=== PATIENT | female | born 1945 | race Caucasian/White ===

== ENCOUNTER → 2016-11-15 | Outpatient (CLI) | payer MEDICARE ==
--- NOTE | 2016-11-15 10:48 | BD ---
EXAMINATION TYPE: MG DEXA axial skeleton. DATE OF EXAM: 11/15/2016 10:20 AM COMPARISON: NONE CLINICAL HISTORY: Z78.0 ASYMPTOMATIC MENOPAUSE Height: 63 Weight: 174 FRAX RISK QUESTIONS: Alcohol (3 or more units per day): NO Family History (Parent hip fracture): NO Glucocorticoids (More than 3mos): NO (Ex: prednisone, prednisolone, methylprednisolone, dexamethasone, and hydrocortisone). History of Fracture in Adulthood: YES Secondary Osteoporosis: 1. Type 1 Diabetes: NO 2. Hyperthyroidism: NO 3. Menopause before 45: NO 4. Malnutrition: NO 5. Chronic liver disease: NO Rheumatoid Arthritis: NO Current Tobacco Use: YES RISK FACTORS HISTORY OF: Other Fractures since Age 52: YES, RT FOOT When: >52 YRS OLD Family History of Osteoporosis: NO Smoke tobacco: YES, A PAC DAILY Drink Alcohol: NO Active: SOMEWHAT, MORE IN SUMMER Diet low in dairy products/other sources of calcium: NO Postmenopausal woman: YES AT AGE 52 Lost more than 2 inches in height since high school: NO Adrenal Insufficiency: NO MEDICATIONS: Thyroid Medications: IN THE PAST ONLY, RT SIDE OF THYROID REMOVED Which medication: SYNTHROID How Long: STOPPED TAKING MEDS 5 YRS AGO Additional Medications: ON BP MEDS IN PAST, BUT NOT NOW, NOTHING TO NOTE Additional History: NONE TO NOTE EXAM MEASUREMENTS: Bone mineral densitometry was performed using the [employer] System. Bone mineral density as measured about the Lumbar spine is: ----- L1-L4(G/cm2): 1.069 T Score Values are as follows: ----- L1: -1.6 ----- L2: -2.0 ----- L3: -0.5 ----- L4: 0.0 ----- L1-L4: -0.9 Bone mineral density IS THE PATIENTS FIRST BONE DENSITY SCAN, BASELINE Bone mineral density about the R hip (g/cm2): 0.764 Bone mineral density about the L hip (g/cm2): 0.782 T Score values are as follows: -----R Neck: -2.0 -----L Neck: -1.8 -----R Intertrochanter: -1.6 -----L Intertrochanter: -1.3 Bone mineral density BASELINE STUDY FOR BONE DENSITY FRAX%'S: FOR MAJOR OSTEOPOROTIC FX: 18.6%.....FOR HIP FX: 5.4% PROBABILITY OF FX IN 10 YR S TIME IMPRESSION: Osteopenia (T Score between -2.5 and -1 as noted by T score values There is slightly increased risk of fracture and the patient may be considered for treatment. Re-Screen 1-2 years. FOR BOTH STUDIES, SPINE AND BOTH HIPS NOTE: T-SCORE=SD OF THE YOUNG ADULT MEAN.
--- NOTE | 2016-11-18 09:02 | MM ---
Reason for exam: screening (asymptomatic). Physical Findings: A clinical breast exam by your physician is recommended on an annual basis and results should be correlated with mammographic findings. MG 3D Screening Mammo W/Cad Bilateral CC and MLO view(s) were taken. No prior studies available for comparison. There are scattered fibroglandular densities. No suspicious calcifications are seen. Right retroareolar nodule. ASSESSMENT: Incomplete: need additional imaging evaluation, BI-RAD 0 RECOMMENDATION: Special view mammogram of the right breast. If lesion persists on supplemental views, image directed ultrasound is recommended. [facility] will attempt to contact patient to return for supplemental views and ultrasound if indicated.
== END | disposition home or self-care (01) ==
LOC: RADMAMWWP 09:31
PROVIDERS: ATTEND Family Medicine
DX: Z12.31 Encounter for screening mammogram for malignant neoplasm of breast (principal); R92.2 Inconclusive mammogram; M85.80 Other specified disorders of bone density and structure, unspecified site; Z78.0 Asymptomatic menopausal state
CPT/HCPCS: 77080; 77052; 77063; G0202

== ENCOUNTER → 2016-11-29 | Outpatient (CLI) | payer MEDICARE, OTHER ==
--- NOTE | 2016-11-29 11:00 | MM ---
Reason for exam: additional evaluation requested from abnormal screening. Last mammogram was performed less than 1 month ago. History: Patient is postmenopausal. Family history of breast cancer in paternal aunt. Physical Findings: Nurse did not find any significant physical abnormalities on exam. MG 3D Work Up W/Cad RT ML, spot compression CC, and spot compression MLO view(s) were taken of the right breast. Prior study comparison: November 15, 2016, bilateral MG 3d screening mammo w/cad. There is no discrete abnormality including area of concern. These results were verbally communicated with the patient and result sheet given to the patient on 11/29/16. ASSESSMENT: Probably benign, BI-RAD 3 RECOMMENDATION: Follow-up diagnostic mammogram of the right breast in 6 months.
== END | disposition home or self-care (01) ==
LOC: RADMAMWWP 10:15
PROVIDERS: ATTEND Family Medicine
DX: R92.8 Other abnormal and inconclusive findings on diagnostic imaging of breast (principal)
CPT/HCPCS: G0206; G0279

== ENCOUNTER → 2018-10-23 | Outpatient (CLI) | payer MEDICARE, OTHER ==
--- NOTE | 2018-10-26 11:36 | MM ---
Reason for exam: screening (asymptomatic). Last mammogram was performed 1 year and 11 months ago. History: Patient is postmenopausal. Family history of breast cancer in paternal aunt. Physical Findings: A clinical breast exam by your physician is recommended on an annual basis and results should be correlated with mammographic findings. MG 3D Screening Mammo W/Cad Bilateral CC and MLO view(s) were taken. Prior study comparison: November 29, 2016, right breast MG 3d work up w/cad RT. November 15, 2016, bilateral MG 3d screening mammo w/cad. There are scattered fibroglandular densities. There are benign appearing vascular calcifications bilaterally. There is chronic nodularity in the right axilla. There is no dominant lesion. There is no discrete abnormality. Benign bilateral axillary lymph nodes. ASSESSMENT: Benign, BI-RAD 2 RECOMMENDATION: Routine screening mammogram of both breasts in 1 year.
== END | disposition home or self-care (01) ==
LOC: RADMAMWWP 13:44
PROVIDERS: ATTEND Family Medicine
DX: Z12.31 Encounter for screening mammogram for malignant neoplasm of breast (principal)
CPT/HCPCS: 77063; 77067

== ENCOUNTER 2020-08-07 10:41 | Observation (INO) | payer MEDICARE, OTHER ==
[2020-08-07] MEDS ORDERED: ASPIRIN 81 MG PO STA (11:13)
[2020-08-07 11:47] LABS: Basophils % (A) 1 %; Eosinophils # (A) 0.1 k/uL (0-0.7); Eosinophils % (A) 1 %; HCT 44.9 % (34.0-46.0); HGB 14.3 gm/dL (11.4-16.0); Lymphocytes # (A) 2.2 k/uL (1.0-4.8); Lymphocytes % (A) 31 %; MCH 30.7 pg (25.0-35.0); MCHC 31.9 g/dL (31.0-37.0); MCV 96.3 fL (80.0-100.0); Mean Platelet Volume 9.1; Monocytes # (A) 0.6 k/uL (0-1.0); Monocytes % (A) 8 %; Neutrophils % (A) 56 %; Platelet Count 247 k/uL (150-450); RBC 4.66 m/uL (3.80-5.40); RDW 13.2 % (11.5-15.5); WBC 7.1 k/uL (3.8-10.6)
[2020-08-07 11:54] LABS: ALT 21 U/L (4-34); AST 28 U/L (14-36); African American GFR (CKD) >90 (>60 ml/min/1.73 sqM); Albumin 4.1 g/dL (3.5-5.0); Alkaline Phosphatase 85 U/L (38-126); Anion Gap 6 mmol/L; Blood Urea Nitrogen 12 mg/dL (7-17); Calcium 9.4 mg/dL (8.4-10.2); Carbon Dioxide 25 mmol/L (22-30); Chloride 106 mmol/L (98-107); Glucose 116 mg/dL (74-99); Magnesium 1.8 mg/dL (1.6-2.3); Non-African American GFR(CKD) >90 (>60 ml/min/1.73 sqM); Potassium 4.1 mmol/L (3.5-5.1); Sodium 137 mmol/L (137-145); Total Bilirubin 0.6 mg/dL (0.2-1.3); Total Protein 6.9 g/dL (6.3-8.2)
[2020-08-07 12:00] LABS: INR 0.9 (<1.2); Partial Thromboplastin Time 24.3 sec (22.0-30.0); Prothrombin Time 9.9 sec (9.0-12.0)
--- NOTE | 2020-08-07 12:33 | XR ---
EXAMINATION TYPE: XR chest 2V DATE OF EXAM: 08/07/2020 COMPARISON: 05/19/2014 INDICATION: Chest pain TECHNIQUE: Frontal and lateral views of the chest are obtained. FINDINGS: The heart size is normal. The pulmonary vasculature is normal. The lungs are clear. Previous pleural effusion IMPRESSION: 1. No acute pulmonary process.
--- NOTE | 2020-08-07 12:38 | ED ---
Chest Pain HPI - General Chief Complaint: Chest Pain Stated Complaint: chest pain Time Seen by Provider: 08/07/20 11:10 Source: patient, RN notes reviewed Mode of arrival: ambulatory Limitations: no limitations - History of Present Illness Initial Comments: This a 75-year-old female sent emergency Department chief complaint of chest pressure this morning. Patient states that This morning states that she was taking her vitamins and drink water. Patient states she started not feeling well developed some pressure in her chest that radiated across denies any back pain. She no associated shortness of breath. Patient states that symptoms did resolve and she had no direct pain states it was all pressure. Patient does have known carotid artery blockage, lower extremity issues. Patient does take medication for hyperlipidemia did have a past history of hypertension. Patient denies any prior cardiac disease so she's never had a heart cath and no recent stress test. Patient denies any fevers or chills no patient offers no other complaints. - Related Data Home Medications Medication Instructions Recorded Confirmed No Known Home Medications 08/11/14 08/11/14 Allergies Allergy/AdvReac Type Severity Reaction Status Date / Time No Known Allergies Allergy Verified 08/07/20 11:08 Review of Systems ROS Statement: Those systems with pertinent positive or pertinent negative responses have been documented in the HPI. ROS Other: All systems not noted in ROS Statement are negative. EKG Findings - EKG Comments: EKG Findings:: EKG performed at 11:28 sinus bradycardia rate of 56 ME 198 QRS 78 QT/QTC 426/411 Past Medical History Past Medical History: Thyroid Disorder Additional Past Medical History / Comment(s): Thyroid disorder History of Any Multi-Drug Resistant Organisms: None Reported Past Surgical History: Bowel Resection, Cholecystectomy, Tubal Ligation Past Anesthesia/Blood Transfusion Reactions: Previous Problems w/ Anesthesia Additional Past Anesthesia/Blood Transfusion Reaction / Comment(s): pt states had breathing difficulties after bowel resection surgery attributed to anesthesia Past Psychological History: No Psychological Hx Reported Smoking Status: Current some day smoker Past Alcohol Use History: None Reported Past Drug Use History: None Reported General Exam Limitations: no limitations General appearance: alert, in no apparent distress Head exam: Present: atraumatic, normocephalic, normal inspection Eye exam: Present: normal appearance, PERRL, EOMI. Absent: scleral icterus, conjunctival injection, periorbital swelling ENT exam: Present: normal exam, mucous membranes moist Neck exam: Present: normal inspection. Absent: tenderness, meningismus, lymphadenopathy Respiratory exam: Present: normal lung sounds bilaterally. Absent: respiratory distress, wheezes, rales, rhonchi, stridor, chest wall tenderness Cardiovascular Exam: Present: regular rate, normal rhythm, normal heart sounds. Absent: systolic murmur, diastolic murmur, rubs, gallop, clicks GI/Abdominal exam: Present: soft, normal bowel sounds. Absent: distended, tenderness, guarding, rebound, rigid Course Vital Signs 08/07/20 08/07/20 08/07/20 11:05 11:30 11:40 Temperature 97.7 F Pulse Rate 73 61 65 Respiratory 18 18 18 Rate Blood Pressure 142/76 155/84 155/84 O2 Sat by Pulse 96 98 96 Oximetry 08/07/20 12:28 Temperature Pulse Rate 54 L Respiratory 18 Rate Blood Pressure 159/79 O2 Sat by Pulse 97 Oximetry Chest Pain MDM - MDM 75-year-old presented for chest pressure. Patient's workup is negative this time she does have some mild EKG changes. Patient be admitted for cardiac observation, cardiology evaluation. Disposition Clinical Impression: Chest pain Disposition: ADMITTED IP TO THIS HOSP Condition: Fair Referrals: Kwame Colon MD [Primary Care Provider] - 1-2 days
[2020-08-07] MEDS ORDERED: HEPARIN SODIUM,PORCINE 5,000 UNIT/ML 1 ML VIAL IV PRN (12:51)
[2020-08-07] MEDS ORDERED: HEPARIN SODIUM,PORCINE 5,000 UNIT/ML 1 ML VIAL IV ONE (12:51)
[2020-08-07] MEDS ORDERED: NITROGLYCERIN SL TABS 0.4 MG TAB SUBLINGUAL PRN (12:51)
[2020-08-07] MEDS ORDERED: HEPARIN SOD,PORK IN 0.45% NACL 25,000 UNIT in 0.45% NACL 1 250ML.BAG IV SCH (13:00)
--- NOTE | 2020-08-07 16:37 | P.HPIM ---
History of Present Illness 75-year-old female came in because of chest pressure like sensation of chest discomfort which started today morning and patient attributes to her symptoms to call probably eating spicy food last night. Patient denied any fever chills cough. Patient has significant T-wave inversions in the lateral leads. Patient pain is not associated with shortness of breath lightheadedness diaphoresis. Patient does have history of carotid vascular disease, peripheral vascular disease used to smoke until about any ago. Patient had a stress test about any ago which did not show any inducible ischemia compared to her previous EKG receiving inversions appear to be new. Patient is being admitted for additional family and for possibility of unstable angina. Review of Systems REVIEW OF SYSTEMS: CONSTITUTIONAL: No fever, no malaise, no fatigue. HEENT: No recent visual problems or hearing problems. Denied any sore throat. CARDIOVASCULAR: No orthopnea, PND, no palpitations, no syncope. PULMONARY: No shortness of breath, no cough, no hemoptysis. GASTROINTESTINAL: No diarrhea, no nausea, no vomiting, no abdominal pain. NEUROLOGICAL: No headaches, no weakness, no numbness. HEMATOLOGICAL: Denies any bleeding or petechiae. GENITOURINARY: Denies any burning micturition, frequency, or urgency. MUSCULOSKELETAL/RHEUMATOLOGICAL: Denies any joint pain, swelling, or any muscle pain. ENDOCRINE: Denies any polyuria or polydipsia. The rest of the 14-point review of systems is negative. Past Medical History Past Medical History: Thyroid Disorder Additional Past Medical History / Comment(s): Thyroid disorder History of Any Multi-Drug Resistant Organisms: None Reported Past Surgical History: Bowel Resection, Cholecystectomy, Tubal Ligation Past Anesthesia/Blood Transfusion Reactions: Previous Problems w/ Anesthesia Additional Past Anesthesia/Blood Transfusion Reaction / Comment(s): pt states had breathing difficulties after bowel resection surgery attributed to anesthesia Past Psychological History: No Psychological Hx Reported Smoking Status: Current some day smoker Past Alcohol Use History: None Reported Past Drug Use History: None Reported Medications and Allergies Home Medications Medication Instructions Recorded Confirmed Type ALPRAZolam [Xanax] 0.25 mg PO BID PRN 08/07/20 08/07/20 History Aspirin EC [Ecotrin Low Dose] 81 mg PO DAILY 08/07/20 08/07/20 History Atorvastatin [Lipitor] 40 mg PO HS 08/07/20 08/07/20 History Calcium Carbonate [Calcium] 600 mg PO DAILY 08/07/20 08/07/20 History Cholecalciferol [Vitamin D3 (25 1,000 unit PO DAILY 08/07/20 08/07/20 History Mcg = 1000 Iu)] buPROPion XL [Wellbutrin Xl] 150 mg PO PC-SUPPER 08/07/20 08/07/20 History Allergies Allergy/AdvReac Type Severity Reaction Status Date / Time No Known Allergies Allergy Verified 08/07/20 13:50 Physical Exam Vitals: Vital Signs Temp Pulse Pulse Resp BP BP Pulse Ox 08/07/20 16:20 97.6 F 55 L 16 153/72 95 08/07/20 15:10 98.1 F 69 16 156/74 96 08/07/20 14:00 58 L 18 145/71 96 08/07/20 13:20 59 L 18 155/77 99 08/07/20 12:28 54 L 18 159/79 97 08/07/20 11:40 65 18 155/84 96 08/07/20 11:30 61 18 155/84 98 08/07/20 11:05 97.7 F 73 18 142/76 96 Intake and Output 08/07/20 08/07/20 08/07/20 06:59 14:59 22:59 Other: Weight 75.75 kg PHYSICAL EXAMINATION: GENERAL: The patient is alert and oriented x3, not in any acute distress. Well developed, well nourished. HEENT: Pupils are round and equally reacting to light. EOMI. No scleral icterus. No conjunctival pallor. Normocephalic, atraumatic. No pharyngeal erythema. No thyromegaly. CARDIOVASCULAR: S1 and S2 present. No murmurs, rubs, or gallops. PULMONARY: Chest is clear to auscultation, no wheezing or crackles. ABDOMEN: Soft, nontender, nondistended, normoactive bowel sounds. No palpable organomegaly. MUSCULOSKELETAL: No joint swelling or deformity. EXTREMITIES: No cyanosis, clubbing, or pedal edema. NEUROLOGICAL: Gross neurological examination did not reveal any focal deficits. SKIN: No rashes. Results CBC & Chem 7: 08/07/20 11:29 08/07/20 11:29 Labs: Abnormal Lab Results - Last 24 Hours (Table) 08/07/20 Range/Units 11:29 Creatinine 0.51 L (0.52-1.04) mg/dL Glucose 116 H (74-99) mg/dL Assessment and Plan Plan: 1 chest pain: We'll rule out acute coronary syndrome/unstable angina. We will evaluate the patient decision regarding cardiac catheterization as per the patient and cardiology. -Hyperthyroidism next and-hyperlipidemia -Professor disease -Carotid vascular disease Patient will be continued on aspirin and statin.
--- NOTE | 2020-08-07 18:00 | ECHOF ---
Referral Reason:chest pain MEASUREMENTS -------- HEIGHT: 160.0 cm WEIGHT: 75.7 kg BP: RVIDd: 2.8 cm (< 3.3) IVSd: 1.3 cm (0.6 - 1.1) LVIDd: 3.5 cm (3.9 - 5.3) LVPWd: 1.2 cm (0.6 - 1.1) IVSs: 1.6 cm LVIDs: 3.1 cm LVPWs: 1.8 cm LA Diam: 3.2 cm (2.7 - 3.8) LAESV Index (A-L): 23.87 ml/m Ao Diam: 3.4 cm (2.0 - 3.7) AV Cusp: 1.7 cm (1.5 - 2.6) MV EXCURSION: 15.568 mm (> 18.000) MV EF SLOPE: 67 mm/s (70 - 150) EPSS: 0.6 cm MV E Kristofer: 0.77 m/s MV DecT: 362 ms MV A Kristofer: 1.04 m/s MV E/A Ratio: 0.74 FINDINGS -------- Sinus rhythm. This was a technically adequate study. The left ventricular size is normal. There is mild concentric left ventricular hypertrophy. Overa ll left ventricular systolic function is normal with, an EF between 60 - 65 %. The right ventricle is normal in size. Normal LA size by volume 22+/-6 ml/m2. The right atrium is normal in size. Lipomatous Hypertrophy of the atrial septum is present The aortic valve is trileaflet and appears structurally normal. Mild mitral annular calcification present. There is trace mitral regurgitation. The tricuspid valve appears structurally normal. The pulmonic valve was not well visualized. The aortic root size is normal. Normal inferior vena cava with normal inspiratory collapse consistent with estimated right atrial pre ssure of 5 mmHg. There is no pericardial effusion. CONCLUSIONS -------- 1. The left ventricular size is normal. 2. There is mild concentric left ventricular hypertrophy. 3. Overall left ventricular systolic function is normal with, an EF between 60 - 65 %. 4. Lipomatous Hypertrophy of the atrial septum is present 5. Mild mitral annular calcification present. 6. There is trace mitral regurgitation. 7. There is no pericardial effusion. [employer]: KELSEY Davalos
[2020-08-07] MEDS ORDERED: ATORVASTATIN 40 MG TAB PO SCH (21:00)
[2020-08-08] MEDS ORDERED: SODIUM CHLORIDE 0.9% 1,000 ML in EMPTY BAG 1 BAG IV ONE (08:24)
[2020-08-08] MEDS ORDERED: ALPRAZolam 0.25 MG TAB PO PRN (08:24)
[2020-08-08] MEDS ORDERED: ALPRAZolam 0.5 MG TAB PO PRN (08:24)
[2020-08-08] MEDS ORDERED: ASPIRIN 325 MG TAB PO SCH (09:00)
[2020-08-08 10:14] LABS: Mean Platelet Volume 9.5; Platelet Count 242 k/uL (150-450)
[2020-08-08 10:26] LABS: Cholesterol 118 mg/dL (<200); HDL Cholesterol 79 mg/dL (40-60); LDL Cholesterol,Calculated 22 mg/dL (0-99); Triglycerides 87 mg/dL (<150)
--- NOTE | 2020-08-08 10:38 | P.CRDCN ---
History of Present Illness History of present illness: HISTORY OF PRESENTING ILLNESS This is a pleasant 75-year-old female past medical history significant for dyslipidemia, peripheral vascular disease with known right carotid artery b lockage followed by Dr. Chang, abnormal lower extremity GRAY's and chronic nicotine dependence. She follows in the office with Dr. Cleaning. We have been asked to see in consultation for chest pain. She states she woke up yesterday morning feeling in her usual state of health. She got up to take her vitamins and she noticed a pressure in the left side of her chest that radiated through to her back. She denies radiation down the arm, into the neck or jaw. The chest discomfort lasted for approximately 15 minutes with no specific alleviating factor. She went on with her day without any further chest discomfort. Later in the day she was speaking with her son and told him what happened morning and he brought her to the hospital for further evaluation. She has had no further symptoms of chest discomfort since arriving at the hospital. DIAGNOSTICS EKG reveals sinus bradycardia heart rate of 56 T-wave inversions noted in anterior precordial leads as well as high lateral. Chest xray negative for acute cardiopulmonary process. Laboratory reviewed, CBC unremarkable, cardiac enzymes negative 3, LDL 22 and HDL 79, sodium 137, potassium 4.1, creatinine 0.51, magnesium 1.8 and NTP proBNP 337. Current cardiac medications include aspirin 81 mg daily and atorvastatin 40 mg at bedtime. She underwent a Lexiscan stress test in the office November 2018 that was negative for reversible cardiac ischemia. At that time her EKG was normal sinus mechanism with no ST or T wave abnormalities noted. Most recent echocardiogram obtained in the office December 2018 revealed preserved LV systolic function with ejection fraction 65%, mild concentric LVH noted. REVIEW OF SYSTEMS At the time of my exam: CONSTITUTIONAL: Denies fever or chills. CARDIOVASCULAR: Denies chest pain, shortness of breath, orthopnea, PND or palpitations. RESPIRATORY: Denies cough. GASTROINTESTINAL: Denies abdominal pain, diarrhea, constipation, nausea or vomiting. MUSCULOSKELETAL: Denies myalgias. NEUROLOGIC: Denies numbness, tingling or weakness. ENDOCRINE: Denies fatigue, weight change, polydipsia or polyurina. GENITOURINARY: Denies burning, hematuria or urgency with micturation. HEMATOLOGIC: Denies history of anemia or bleeding. PHYSICAL EXAMINATION Blood pressure 136/70 heart rate 56 afebrile and maintaining oxygen saturation on room air. CONSTITUTIONAL: No apparent distress. HEENT: Head is normocephalic. Pupils are equal, round. Sclerae anicteric. Mucous membranes of the mouth are moist. No JVD. No carotid bruit. CHEST EXAMINATION: Lungs are clear to auscultation. No chest wall tenderness is noted on palpation or with deep breathing. HEART EXAMINATION: Regular rate and rhythm. S1, S2 heard. No murmurs, gallops or rub. ABDOMEN: Soft, nontender. Positive bowel sounds. EXTREMITIES: 2+ peripheral pulses, no lower extremity edema and no calf tenderness. NEUROLOGIC EXAMINATION: Patient is awake, alert and oriented x3. ASSESSMENT Unstable angina with abnormal EKG Dyslipidemia Peripheral vascular disease Chronic nicotine dependence PLAN An acute coronary event has been ruled out. Given the patient's abnormal EKG and symptoms of chest discomfort we recommend proceeding with cardiac catheterization to assess for underlying coronary artery disease. I have discussed the risks, benefits and alternative therapies for the above-mentioned procedure and for both sedation/analgesia as well as necessary blood product administration, if indicated, as they pertain to this patient. The patient has indicated understanding and acceptance of the risks and procedures discussed. Questions have been answered appropriately and she is agreeable to move forward with the above stated procedure. Recommend smoking cessation. Obtain 2-D echocardiogram and Doppler study to assess cardiac structure and function. Further recommendations to follow based upon clinical course. Thank you kindly for this consultation. Nurse Practitioner note has been reviewed, I agree with a documented findings and plan of care. Patient was seen and examined. Past Medical History Past Medical History: Chest Pain / Angina, Hyperlipidemia, Thyroid Disorder Additional Past Medical History / Comment(s): Thyroid disorder History of Any Multi-Drug Resistant Organisms: None Reported Past Surgical History: Bowel Resection, Cholecystectomy, Tubal Ligation Past Anesthesia/Blood Transfusion Reactions: Previous Problems w/ Anesthesia Additional Past Anesthesia/Blood Transfusion Reaction / Comment(s): pt states had breathing difficulties after bowel resection surgery attributed to anesthesia Past Psychological History: No Psychological Hx Reported Smoking Status: Current some day smoker Past Alcohol Use History: None Reported Past Drug Use History: None Reported - Past Family History Mother Family Medical History: Myocardial Infarction ([place]) Father Family Medical History: Cancer Additional Family Medical History / Comment(s): Prostate cancer Medications and Allergies Home Medications Medication Instructions Recorded Confirmed Type ALPRAZolam [Xanax] 0.25 mg PO BID PRN 08/07/20 08/07/20 History Aspirin EC [Ecotrin Low Dose] 81 mg PO DAILY 08/07/20 08/07/20 History Atorvastatin [Lipitor] 40 mg PO HS 08/07/20 08/07/20 History Calcium Carbonate [Calcium] 600 mg PO DAILY 08/07/20 08/07/20 History Cholecalciferol [Vitamin D3 (25 1,000 unit PO DAILY 08/07/20 08/07/20 History Mcg = 1000 Iu)] buPROPion XL [Wellbutrin Xl] 150 mg PO PC-SUPPER 08/07/20 08/07/20 History Allergies Allergy/AdvReac Type Severity Reaction Status Date / Time No Known Allergies Allergy Verified 08/07/20 13:50 Physical Exam Vitals: Vital Signs Temp Pulse Pulse Resp BP BP Pulse Ox 08/08/20 09:00 16 08/08/20 07:54 97.8 F 56 L 16 136/70 95 08/08/20 03:00 97.8 F 68 16 128/58 96 08/07/20 20:23 97.7 F 72 20 143/72 97 08/07/20 16:20 97.6 F 55 L 16 153/72 95 08/07/20 15:15 16 08/07/20 15:10 98.1 F 69 16 156/74 96 08/07/20 14:00 58 L 18 145/71 96 08/07/20 13:20 59 L 18 155/77 99 08/07/20 12:28 54 L 18 159/79 97 08/07/20 11:40 65 18 155/84 96 08/07/20 11:30 61 18 155/84 98 08/07/20 11:05 97.7 F 73 18 142/76 96 Intake and Output 08/07/20 08/08/20 08/08/20 22:59 06:59 14:59 Intake Total 548.932 51.135 Balance 548.932 51.135 Intake: Intake, IV Titration 68.932 51.135 Amount Heparin Sod,Pork in 0.45% 68.932 51.135 NaCl 25,000 unit In 0.45 % NaCl 1 250ml.bag @ 12 UNITS/KG/HR 9.09 mls/hr IV .Q24H JOJO Rx#: [id number] Oral 480 Other: Voiding Method Toilet Toilet Toilet # Voids 2 1 1 Weight 75.75 kg Results 08/08/20 09:12 08/07/20 11:29 Cardiac Enzymes 08/07/20 08/07/20 08/07/20 Range/Units 11: 11: 14:47 AST 28 (14-36) U/L Troponin I <0.012 <0.012 (0.000-0.034) ng/mL 08/07/20 Range/Units 17:25 AST (14-36) U/L Troponin I <0.012 (0.000-0.034) ng/mL Coagulation 08/07/20 08/07/20 08/08/20 Range/Units 11: 18:30 01:30 PT 9.9 (9.0-12.0) sec APTT 24.3 117.4 H* 47.7 H (22.0-30.0) sec CBC 08/07/20 08/08/20 Range/Units 11:29 09:12 WBC 7.1 (3.8-10.6) k/uL RBC 4.66 (3.80-5.40) m/uL Hgb 14.3 (11.4-16.0) gm/dL Hct 44.9 (34.0-46.0) % Plt Count 247 242 (150-450) k/uL Comprehensive Metabolic Panel 08/07/20 Range/Units 11:29 Sodium 137 (137-145) mmol/L Potassium 4.1 (3.5-5.1) mmol/L Chloride 106 (98-107) mmol/L Carbon Dioxide 25 (22-30) mmol/L BUN 12 (7-17) mg/dL Creatinine 0.51 L (0.52-1.04) mg/dL Glucose 116 H (74-99) mg/dL Calcium 9.4 (8.4-10.2) mg/dL AST 28 (14-36) U/L ALT 21 (4-34) U/L Alkaline Phosphatase 85 (38-126) U/L Total Protein 6.9 (6.3-8.2) g/dL Albumin 4.1 (3.5-5.0) g/dL Current Medications Generic Name Dose Route Start Last Admin Trade Name Freq PRN Reason Stop Dose Admin Alprazolam 0.25 mg 08/08/20 08:24 08/08/20 09:20 Alprazolam 0.25 Mg Tab PO 0.25 mg Q6HR PRN Administration Mild Anxiety Alprazolam 0.5 mg 08/08/20 08:24 Alprazolam 0.5 Mg Tab PO Q6HR PRN Moderate Anxiety Aspirin 325 mg 08/08/20 09:00 08/08/20 08:52 Aspirin 325 Mg Tab PO 325 mg DAILY JOJO Administration Atorvastatin Calcium 40 mg 08/07/20 21:00 08/07/20 20:06 Atorvastatin 40 Mg Tab PO 40 mg HS JOJO Administration Heparin Sodium (Porcine) 0 unit 08/07/20 12:51 Heparin Sodium,Porcine 5,000 Unit/Ml 1 Ml Vial IV Q6HR PRN Low PTT Protocol Heparin Sodium/Sodium Chloride 250 mls @ 9.09 mls/hr 08/07/20 13:00 08/08/20 04:17 25,000 unit/ Sodium Chloride IV 9 units/kg/hr .Q24H JOJO 6.818 mls/hr Titration Protocol 12 UNITS/KG/HR Sodium Chloride 1,000 ml/ IV 1,000 mls @ 75.75 mls/hr 08/08/20 08:24 08/08/20 08:44 Solution IV 08/08/20 21:36 75.75 mls/hr .[id number] ONE Administration 1 ML/KG/HR Nitroglycerin 0.4 mg 08/07/20 12:51 Nitroglycerin Sl Tabs 0.4 Mg Tab SUBLINGUAL Q5M PRN Chest Pain Intake and Output 08/07/20 08/08/20 08/08/20 22:59 06:59 14:59 Intake Total 548.932 51.135 Balance 548.932 51.135 Intake: Intake, IV Titration 68.932 51.135 Amount Heparin Sod,Pork in 0.45% 68.932 51.135 NaCl 25,000 unit In 0.45 % NaCl 1 250ml.bag @ 12 UNITS/KG/HR 9.09 mls/hr IV .Q24H JOJO Rx#: [id number] Oral 480 Other: Voiding Method Toilet Toilet Toilet # Voids 2 1 1 Weight 75.75 kg 08/08/20 09:12 08/07/20 11:29
[2020-08-08] MEDS ORDERED: IV FLUID CONTINUATION 950 ML IV ONE (10:53)
[2020-08-08] MEDS: MIDAZOLAM 2 MG/2 ML VIAL IV ONE ×2 (11:10→11:15)
[2020-08-08] MEDS ORDERED: LIDOCAINE 1% INJ 10MG/ML (20 ML MDV) SQ ONE (11:14)
[2020-08-08] MEDS ORDERED: IOPAMIDOL-370 125ML BTL INJ ONE (11:22)
[2020-08-08] MEDS ORDERED: RX INFO: IV CONTRAST WAS GIVEN 1 EACH MISC MISCELLANE PRN (11:33)
--- NOTE | 2020-08-08 12:59 | P.DS ---
Providers Date of admission: 08/07/20 12:51 Attending physician: Destiny Jasso Consults: 08/07/20 12:51 Consult Physician Urgent Consulting Provider: Gil Gillilnad Consult Reason/Comments: chest pain Do you want consulting provider notified?: Yes Primary care physician: [facility] Course: 75-year-old the female came in for chest pain, ruled out acute coronary syndromes, patient did undergo cardiac catheterization which showed some mild atherosclerotic occlusive disease but note occlusion that will need intervention at this time patient will be discharged today after bedrest that is necessary post cardiac catheterization. PHYSICAL EXAMINATION: GENERAL: The patient is alert and oriented x3, not in any acute distress. Well developed, well nourished. HEENT: Pupils are round and equally reacting to light. EOMI. No scleral icterus. No conjunctival pallor. Normocephalic, atraumatic. No pharyngeal erythema. No thyromegaly. CARDIOVASCULAR: S1 and S2 present. No murmurs, rubs, or gallops. PULMONARY: Chest is clear to auscultation, no wheezing or crackles. ABDOMEN: Soft, nontender, nondistended, normoactive bowel sounds. No palpable organomegaly. MUSCULOSKELETAL: No joint swelling or deformity. EXTREMITIES: No cyanosis, clubbing, or pedal edema. NEUROLOGICAL: Gross neurological examination did not reveal any focal deficits. SKIN: No rashes. Please refer to my HPI. Other medical problems in the rest of the hospitalization course Patient Condition at Discharge: Fair Plan - Discharge Summary New Discharge Prescriptions: Continue Cholecalciferol [Vitamin D3 (25 Mcg = 1000 Iu)] 1,000 unit PO DAILY Calcium Carbonate [Calcium] 600 mg PO DAILY Atorvastatin [Lipitor] 40 mg PO HS Aspirin EC [Ecotrin Low Dose] 81 mg PO DAILY buPROPion XL [Wellbutrin XL] 150 mg PO PC-SUPPER ALPRAZolam [Xanax] 0.25 mg PO BID PRN PRN Reason: Anxiety Discharge Medication List ALPRAZolam [Xanax] 0.25 mg PO BID PRN 08/07/20 [History] Aspirin EC [Ecotrin Low Dose] 81 mg PO DAILY 08/07/20 [History] Atorvastatin [Lipitor] 40 mg PO HS 08/07/20 [History] Calcium Carbonate [Calcium] 600 mg PO DAILY 09/28/20 [History] Cholecalciferol [Vitamin D3 (25 Mcg = 1000 Iu)] 1,000 unit PO DAILY 08/07/20 [History] buPROPion XL [Wellbutrin XL] 150 mg PO PC-SUPPER 08/07/20 [History] Follow up Appointment(s)/Referral(s): Cedrick Cleaning MD [STAFF PHYSICIAN] - 1 Week Kwame Colon MD [Primary Care Provider] - 3 Days Patient Instructions/Handouts: How to Stop Smoking (DC), Heart Healthy Diet (DC) Discharge Disposition: HOME SELF-CARE
[2020-08-08 15:32] VITALS: RESP 16; TEMP 97.7
--- NOTE | 2020-08-08 16:38 | CC ---
CARDIAC CATHETERIZATION REPORT INDICATION: Unstable angina. PROCEDURE NOTE: After obtaining informed consent, left heart catheterization and coronary angiogram were performed via the right femoral artery using standard Stephan catheters. Patient tolerated the procedure well without any immediate complication. A femoral angiogram was performed and patient was made for manual hemostasis because of evidence of peripheral arterial disease. FINDINGS: 1. HEMODYNAMICS: Left ventricular end-diastolic pressure is 12 mm. There is no gradient across the aortic valve. 2. LEFT VENTRICULOGRAM: Left ventriculogram is not performed. 3. ANGIOGRAPHIC DATA: LEFT MAIN CORONARY ARTERY: Left main coronary artery is a normal-sized vessel and is free of stenosis. Divides into left anterior descending coronary artery and circumflex coronary artery. LAD and its branches are free of significant disease. Circumflex coronary artery is a nondominant vessel and is free of significant disease. Right coronary artery is a large dominant vessel and is free of significant stenosis. There is mild nonobstructive CAD involving the LAD and circumflex coronary artery. CONCLUSION: Mild nonobstructive coronary artery disease. PLAN: Patient's chest discomfort is noncardiac in origin and her management is going to be pain risk factor modification. MMODL / IJN: [id number] /
--- NOTE | 2020-08-08 16:41 | LTR ---
DATE OF SERVICE: 08/08/2020 RE: Bree Alba Dear Dr. Colon; I performed cardiac catheterization on Bree Alba. The detailed catheterization note is enclosed for your records. In brief, the cardiac catheterization showed mild nonobstructive coronary artery disease. The patient's management is going to be in the form of risk factor modification and optimal medical therapy. Thank you for letting us participate in the care of this pleasant lady. Sincerely, MD ARUN Clements / SUDEEP: [id number] /
[2020-08-08 17:56] VITALS: BP 157/75; PULSE 64
[2020-08-09] MEDS ORDERED: ASPIRIN 81 MG PO SCH (09:00)
== END 2020-08-08 19:18 | disposition home or self-care (01) ==
LOC: EC 10:41 → 3NCARDOBS 12:51
PROVIDERS: ADMIT Internal Medicine; ATTEND Internal Medicine
DX: R07.89 Other chest pain (principal); E05.90 Thyrotoxicosis, unspecified without thyrotoxic crisis or storm; E78.5 Hyperlipidemia, unspecified; F17.200 Nicotine dependence, unspecified, uncomplicated; I10 Essential (primary) hypertension; I25.110 Atherosclerotic heart disease of native coronary artery with unstable angina pectoris; I73.9 Peripheral vascular disease, unspecified; Z79.82 Long term (current) use of aspirin; Z79.899 Other long term (current) drug therapy; Z82.49 Family history of ischemic heart disease and other diseases of the circulatory system
CPT/HCPCS: 93005 ×2; 96366 ×3; 96376; 96365; 99285; 36415; 93306; 93458; 83880; 80061; 80053; 83690; 83735; 84484; 85025; 85049; 85610; 85730 ×2; 71046; G0378 ×2; C1769 ×2; C1894; J2250; J1644 ×2; J2001; Q9967

== ENCOUNTER → 2023-05-05 | Outpatient (CLI) | payer MEDICARE, OTHER ==
--- NOTE | 2023-05-05 11:14 | CTL ---
EXAMINATION TYPE: CT Low Dose Lung DATE OF EXAM ORDERED: 05/05/2023 HISTORY: Quit 4 years prior. Lung cancer screening CT DLP: 85.10 mGycm Automated exposure control for dose reduction was used. SCREENING VISIT: Initial COMPARISON: None TECHNIQUE: Low dose computed tomography scan was performed through the chest at 1 mm thick sections a nd reconstructed images in the coronal plane at [address] DIAGNOSTIC QUALITY: Satisfactory FINDINGS: LUNG NODULES: Present, detailed below: 1. There is a punctate density in the periphery of juan left upper lung field. Series 4 image 44. 2. There is a punctate density periphery of the left lateral upper lung field. Series 4 image 71. 3. There is a 0.5 cm density within the right mid lung. Series 4 image 129. 4. Mild pneumonitis change within the lingula at the left lateral lung base. Series 4 image 184. 5. There is an area of pneumonitis or infiltrate at the left lateral lung base. Series 4 image 205. I nfectious etiology considered. Other etiologies are not excluded. LUNGS: COPD: Severity: None Fibrosis: Severity: None Lymph nodes: None Other findings: None RIGHT PLEURAL SPACE: Effusion: None Calcification: None Thickening: None Pneumothorax: None LEFT PLEURAL SPACE: Effusion: None Calcification: None Thickening: None Pneumothorax: None HEART: Heart Size: Normal Coronary calcification: Mild Pericardial effusion: None OTHER FINDINGS: Upper abdomen: Normal Bony thorax: Normal Supraclavicular region: Normal Other: Ascending thoracic aortic Main pulmonary artery is 3.1 cm. Main pulmonary artery the bifurcati on is 3.1 cm. IMPRESSION: 1. Benign-appearing findings. FOLLOW UP CT CHEST RECOMMENDATION: Follow-up low-dose CT chest [address] LUNG RAD: Lung-Rad 2 Benign Appearance or Behavior
== END | disposition home or self-care (01) ==
LOC: RADCTMAIN 07:36
PROVIDERS: ATTEND Internal Medicine
DX: Z12.2 Encounter for screening for malignant neoplasm of respiratory organs (principal); Z87.891 Personal history of nicotine dependence
CPT/HCPCS: 71271

== ENCOUNTER → 2023-05-09 | Outpatient (CLI) | payer MEDICARE, OTHER ==
[2023-05-09 16:54] LABS: ALT 33 U/L (8-44); AST 32 U/L (13-35); Albumin 4.6 d/dL (3.8-4.9); Alkaline Phosphatase 81 U/L (41-126); BUN/Creat Ratio 12.38 Ratio (12.00-20.00); Blood Urea Nitrogen 9.9 mg/dL (9.0-27.0); Calcium 9.7 mg/dL (8.7-10.3); Carbon Dioxide 23.9 mmol/L (21.6-31.8); Chloride 102 mmol/L (96-109); Chol/HDL Ratio 1.54 Ratio; Globulin 2.7 d/dL (1.6-3.3); Glucose 99 mg/dL (70-110); LDL Cholesterol,Calculated 33.2 mg/dL (0.0-131.0); Sodium 139 mmol/L (135-145); Total Bilirubin 1.3 mg/dL (0.3-1.2); Total Protein 7.3 d/dL (6.2-8.2)
== END | disposition home or self-care (01) ==
LOC: LABWHC1 12:21
PROVIDERS: ATTEND Internal Medicine Clinical Cardiac Electrophysiology
DX: I10 Essential (primary) hypertension (principal); I25.10 Atherosclerotic heart disease of native coronary artery without angina pectoris; I65.23 Occlusion and stenosis of bilateral carotid arteries; I73.9 Peripheral vascular disease, unspecified; I44.0 Atrioventricular block, first degree
CPT/HCPCS: 36415; 80053; 80061; 83036; 84443

== ENCOUNTER → 2023-08-13 | Day surgery (SDC) | payer MEDICARE, OTHER ==
[~2023-08-13] MED LIST: HEPARIN SODIUM 1,000 UN/ML (10ML VL) IVP ONE; HEPARIN SODIUM 1,000 UN/ML (10ML VL) ONE; IOPAMIDOL-370 100ML BTL INJ ONE; LIDOCAINE 1% INJ 10MG/ML (20 ML MDV) ONE; LIDOCAINE 1% INJ 10MG/ML (20 ML MDV) SQ ONE; MIDAZOLAM 2 MG/2 ML VIAL IVP ONE; NALOXONE 0.4 MG/ML 1 ML VIAL IVP PRN; SODIUM CHLORIDE 0.9% 1,000 ML IV ONE; SODIUM CHLORIDE 0.9% 1,000 ML in EMPTY BAG 1 BAG IV SCH
[2023-08-13 11:45] VITALS: RESP 16; TEMP 98.3
--- NOTE | 2023-08-13 13:00 | IR ---
EXAMINATION TYPE: IR angio carotid cerv LT DATE OF EXAM: 08/13/2023 COMPARISON: NONE HISTORY: Fluoroscopy time. Fluoroscopy was provided to the referring clinician.
--- NOTE | 2023-08-13 13:03 | P.PCN ---
Date of Procedure: 08/13/23 Operative Findings: An aortic arch and carotid angiogram Performing physician Koko Mccarty M.D. Procedure performed 1. An aortic arch angiogram 2. Selective left carotid angiogram 3. Selective right common femoral artery angiogram 4. Ultrasound-guided access of the right common femoral artery Indication This is a 78-year-old female patient who sees Dr. Chin and Dr. Cleaning was known to have occluded right internal carotid artery and recently she was diagnosed with severe disease involving the left internal carotid artery. She was seen by Dr. Chin who recommended performing an aortic arch and carotid angiogram and possible stenting of the left internal carotid artery Approach Right common femoral artery Complication None Level of sedation Moderate with sedation length of 27 minutes Procedure description After obtaining an informed consent the patient was brought to the cardiac photographic laboratory technician. The right common femoral artery was cannulated using micropuncture technique under ultrasound guidance the micropuncture wire passed easily then I placed a 5-Swazi sheath 11 cm sheath which was subsequently exchange into 6- Swazi 90 cm sheath over 035 stiff Glidewire. Subsequently we did an aortic arch angiogram using a long pigtail catheter which was positioned at the aortic root. Subsequently I did selective left carotid angiogram using JB2 catheter. The procedure was completed was no complication. By the end I did selective right common femoral artery angiogram before we closed the right common femoral artery using 6-Swazi Perclose device. An aortic arch and carotid angiogram The aortic arch appeared to be angiographically normal. Its appeared to be type II aortic arch The left carotid. The ostial of the left common carotid artery appeared to have mild disease only. The distal left common carotid artery appears to have also [id number] disease only. The left internal carotid artery by the ostium appears to have an intermediate calcified plaque in the range of what it seems to be 60-70% only. The left external carotid artery appeared to have mild disease only. Conclusion 1. Type II aortic arch 2. Occluded right internal carotid artery 3. Only intermediate disease involving the left internal carotid artery Postprocedure management Medical treatment Follow-up with Dr. Chin and Dr. Cleaning
[2023-08-13 18:15] VITALS: BP 152/96; PULSE 70
== END ==
LOC: CATHCVL 10:47
PROVIDERS: ATTEND Internal Medicine Interventional Cardiology
DX: I65.21 Occlusion and stenosis of right carotid artery (principal); I25.10 Atherosclerotic heart disease of native coronary artery without angina pectoris; I10 Essential (primary) hypertension; I73.9 Peripheral vascular disease, unspecified; I71.40 Abdominal aortic aneurysm, without rupture, unspecified; I44.0 Atrioventricular block, first degree; Z79.899 Other long term (current) drug therapy; Z79.82 Long term (current) use of aspirin
CPT/HCPCS: 99152; 99153; 36223; C1894 ×3; C1769 ×3; C1760; J2250; J2001; J1644; Q9967; 36221

== ENCOUNTER → 2024-10-21 | Outpatient (CLI) | payer MEDICARE ==
[2024-10-21 15:17] LABS: African American GFR (CKD) >90 (>60 ml/min/1.73 sqM); Blood Urea Nitrogen 11 mg/dL (7-17); Non-African American GFR(CKD) 84 (>60 ml/min/1.73 sqM)
--- NOTE | 2024-10-21 18:43 | CT ---
EXAMINATION TYPE: CT angio neck DATE OF EXAM: 10/21/2024 3:59 PM COMPARISON: None CLINICAL INDICATION: Female, 79 years old with history of I65.23 OCCLUSION AND STENOSIS; occlusion an d stenosis TECHNIQUE: Axially acquired helical CT Angiogram of the Neck was obtained with and without contrast. Axial images are supplemented with coronal and sagittal MIP reconstructions. MIP reconstructions were also performed and were post-processed at an independent workstation. Estimated carotid stenosis was calculated using the NASCET criteria. Contrast used:100 mL of Isovue 370 without and with IV Contrast, Oral contrast used: , None. CT DLP: 434 mGycm, Automated exposure control for dose reduction was used. FINDINGS: CTA NECK: Right Carotid System: Occlusion of the right common carotid artery just before its bifurcation which extends into the intra cranial portion with reconstitution in the [place] of Chakraborty. Left Carotid System: The common carotid and external carotid arteries are patent. There is approximately 25% stenosis at t he carotid bifurcation secondary to calcified/noncalcified plaquing. The rest of the internal carotid artery is patent. Vertebral arteries are patent without evidence hemodynamically significant stenosis. Left dominant ve rtebral artery system. There is a three-vessel aortic arch. The origins of the great vessels are patent. No evidence of hemo dynamically significant stenosis. Upper thorax: IMPRESSION: 1. Occlusion of the right common carotid artery just before its bifurcation which extends into the i nternal carotid artery extending into the [place] of Chakraborty with reconstitution. 2. The left carotid system is patent with calcified plaque at the bifurcation with less than 50% avel nosis. 3. Vertebral arteries are patent. Left dominant vertebral artery system. [facility], , 10/21/2024 6:41 PM
== END | disposition home or self-care (01) ==
LOC: RADCTMAIN 14:05
PROVIDERS: ATTEND Surgery Vascular Surgery
DX: I65.23 Occlusion and stenosis of bilateral carotid arteries (principal)
CPT/HCPCS: 82565; 84520; 70498; 36415; Q9967

== ENCOUNTER 2024-11-05 10:04 | Day surgery (SDC) | payer MEDICARE ==
[2024-11-05] MEDS: EMPTY BAG 1 BAG with SODIUM CHLORIDE 0.9% 1,000 ML IV ONE (10:29)
[2024-11-05] MEDS: IV FLUID CONTINUATION 1,000 ML IV ONE (10:30)
[2024-11-05 10:40] LABS: Basophils % (A) 0 %; Eosinophils # (A) 0.1 k/uL (0-0.7); Eosinophils % (A) 1 %; HCT 37.6 % (34.0-46.0); Lymphocytes # (A) 1.7 k/uL (1.0-4.8); Lymphocytes % (A) 24 %; MCH 29.6 pg (25.0-35.0); MCHC 31.9 g/dL (31.0-37.0); MCV 92.8 fL (80.0-100.0); Mean Platelet Volume 8.6; Monocytes # (A) 0.5 k/uL (0-1.0); Monocytes % (A) 7 %; Neutrophils # (A) 4.5 k/uL (1.3-7.7); Neutrophils % (A) 65 %; Platelet Count 373 k/uL (150-450); RBC 4.05 m/uL (3.80-5.40); RDW 14.5 % (11.5-15.5); WBC 6.9 k/uL (3.8-10.6)
[2024-11-05 10:59] LABS: African American GFR (CKD) >90 (>60 ml/min/1.73 sqM); Anion Gap 7 mmol/L; Blood Urea Nitrogen 10 mg/dL (7-17); Calcium 9.4 mg/dL (8.4-10.2); Carbon Dioxide 24 mmol/L (22-30); Chloride 108 mmol/L (98-107); Glucose 97 mg/dL (74-99); Non-African American GFR(CKD) 86 (>60 ml/min/1.73 sqM); Potassium 4.2 mmol/L (3.5-5.1); Sodium 139 mmol/L (137-145)
[2024-11-05] MEDS: LIDOCAINE 1% INJ 10MG/ML (20 ML MDV) SQ ONE (12:39)
[2024-11-05] MEDS: IOPAMIDOL-370 100ML BTL INJ ONE (13:18)
[2024-11-05] MEDS: HEPARIN SODIUM,PORCINE (1 ML) 2,500 UNIT in SODIUM CHLORIDE 0.9% 250 ML IRRIGATION ONE (13:19)
[2024-11-05] MEDS: HEPARIN SODIUM,PORCINE 10,000 UNIT in SODIUM CHLORIDE 0.9% 1,000 ML IRRIGATION ONE (13:19)
[2024-11-05] MEDS ORDERED: NALOXONE 0.4 MG/ML 1 ML VIAL IVP PRN (13:29)
--- NOTE | 2024-11-05 13:36 | P.PCN ---
Date of Procedure: 11/05/24 Operative Findings: An aortic arch and carotid angiogram Performing physician MD Koko Procedure performed An aortic arch and left carotid angiogram An abdominal aortogram and right common iliac angiogram Gradient measurement across the left common carotid artery and right common iliac artery Ultrasound-guided access of the right common femoral artery Indication The patient is a 79-year-old female patient who sees at the [facility] and Dr. Burgos regularly who underwent recently carotid CTA showed concerning finding with occluded right common carotid artery and severe disease involving the left internal carotid artery which she was brought by angiogram for further clarification Approach Right common femoral artery Complication None Level of sedation Moderate with sedation length of 31 minutes Procedure description After obtaining informed consent the patient was brought to the cardiac Dye Feeder. The right common femoral artery was cannulated using micropuncture technique under ultrasound guidance the micropuncture wire passed easily then I placed a 6 German 11 cm sheath. Subsequently I did an aortic arch angiogram using the pigtail catheter and I did also selective left common carotid angiogram using JB2 catheter. After that we did an aortic angiogram of the abdominal aorta using the dictate catheter and gradient measurement across the right common iliac artery please note that also we did. Measurement across the left common carotid artery. The procedure was completed with no complication Finding The left common carotid artery appeared to have mild disease only. The left external iliac artery appeared to have mild disease only. The left internal iliac artery appeared to have at least 50 to 60% lesion on some views and the lesion appeared to be somewhat worse on other views. Please note that the patient was moving throughout the procedure. Also I did an abdominal aortic angiogram and that revealed severe disease involving the right common iliac artery documented by gradient Conclusion Intermediate to severe disease involving the left internal carotid artery Subtotally occluded right common iliac artery Postprocedure management Review the CT scan which was performed recently Discussed the case with Dr. Chang as well regarding the decision of revascu larization
--- NOTE | 2024-11-05 13:41 | IR ---
EXAMINATION TYPE: IR angio carotid cereb LT DATE OF EXAM: 11/05/2024 COMPARISON: NONE CLINICAL INDICATION: Female, 79 years old with history of Neck pain, 9.0min, 34.5 dap; Fluoroscopy was provided to the referring clinician. [facility], , 11/05/2024 1:38 PM
[2024-11-05 15:15] VITALS: RESP 17; TEMP 97.6
[2024-11-05] MEDS: SODIUM CHLORIDE 0.9% 1,000 ML in EMPTY BAG 1 BAG IV SCH (15:18)
[2024-11-05 18:11] VITALS: BP 148/59; PULSE 61
== END 2024-11-05 20:11 | disposition home or self-care (01) ==
LOC: CATHCVL 10:04 → 6NMEDSUR 14:37 → CATHCVL 20:11
PROVIDERS: ATTEND Internal Medicine Interventional Cardiology
DX: I65.23 Occlusion and stenosis of bilateral carotid arteries (principal); I74.5 Embolism and thrombosis of iliac artery; I10 Essential (primary) hypertension; E78.5 Hyperlipidemia, unspecified; F17.210 Nicotine dependence, cigarettes, uncomplicated; Z82.49 Family history of ischemic heart disease and other diseases of the circulatory system; Z79.02 Long term (current) use of antithrombotics/antiplatelets; Z79.899 Other long term (current) drug therapy
CPT/HCPCS: 75625; 76937; 36222; 80048; 85025; C1769 ×2; C1894; J1644 ×2; J2003; Q9967; 36221

== ENCOUNTER 2024-12-15 05:56 | Inpatient (IN) | payer MEDICARE, OTHER ==
[2024-12-15] MEDS ORDERED: CLOPIDOGREL 75 MG TAB PO PRN (06:07)
[2024-12-15] MEDS ORDERED: HEPARIN SODIUM,PORCINE 10,000 UNIT in SODIUM CHLORIDE 0.9% 1,000 ML IRRIGATION PRN (06:07)
[2024-12-15] MEDS ORDERED: HEPARIN SODIUM,PORCINE (1 ML) 2,500 UNIT in SODIUM CHLORIDE 0.9% 250 ML IRRIGATION PRN (06:07)
[2024-12-15] MEDS: EMPTY BAG 1 BAG with SODIUM CHLORIDE 0.9% 1,000 ML IV SCH (06:12)
[2024-12-15] MEDS: IV FLUID CONTINUATION 1,000 ML IV ONE (06:13)
[2024-12-15] MEDS: ASPIRIN 81 MG PO PRN (06:16)
[2024-12-15 07:05] LABS: African American GFR (CKD) >90 (>60 ml/min/1.73 sqM); Anion Gap 12 mmol/L; Blood Urea Nitrogen 12 mg/dL (7-17); Calcium 9.1 mg/dL (8.4-10.2); Carbon Dioxide 22 mmol/L (22-30); Chloride 102 mmol/L (98-107); Glucose 109 mg/dL (74-99); Non-African American GFR(CKD) 84 (>60 ml/min/1.73 sqM); Potassium 3.6 mmol/L (3.5-5.1); Sodium 136 mmol/L (137-145)
[2024-12-15 07:31] LABS: Basophils % (A) 0 %; Eosinophils # (A) 0.1 k/uL (0-0.7); Eosinophils % (A) 1 %; HCT 33.8 % (34.0-46.0); HGB 11.2 gm/dL (11.4-16.0); Lymphocytes # (A) 1.3 k/uL (1.0-4.8); Lymphocytes % (A) 25 %; MCH 29.9 pg (25.0-35.0); MCHC 33.1 g/dL (31.0-37.0); MCV 90.4 fL (80.0-100.0); Mean Platelet Volume 9.2; Monocytes # (A) 0.5 k/uL (0-1.0); Monocytes % (A) 9 %; Neutrophils # (A) 3.4 k/uL (1.3-7.7); Neutrophils % (A) 62 %; Platelet Count 268 k/uL (150-450); RBC 3.74 m/uL (3.80-5.40); RDW 14.5 % (11.5-15.5); WBC 5.4 k/uL (3.8-10.6)
[2024-12-16] MEDS ORDERED: NITROGLYCERIN SL TABS 0.4 MG TAB SUBLINGUAL PRN (05:53)
[2024-12-16] MEDS ORDERED: ALPRAZolam 0.25 MG TAB PO PRN (05:53)
[2024-12-16] MEDS ORDERED: ALPRAZolam 0.5 MG TAB PO PRN (05:53)
[2024-12-16] MEDS ORDERED: CLOPIDOGREL 75 MG TAB PO PRN (07:00)
[2024-12-16] MEDS ORDERED: ASPIRIN 81 MG PO PRN (07:00)
[2024-12-16] MEDS ORDERED: RX INFO: IV CONTRAST WAS GIVEN 1 EACH MISC MISCELLANE PRN (09:00)
[2024-12-16] MEDS: SODIUM CHLORIDE 0.9% 1,000 ML in EMPTY BAG 1 BAG IV ONE (10:14)
[2024-12-16] MEDS: IV FLUID CONTINUATION 1,000 ML IV ONE (10:15)
[2024-12-16] MEDS: LIDOCAINE 1% INJ 10MG/ML (20 ML MDV) SQ ONE (12:35)
[2024-12-16] MEDS: TICAGRELOR 90 MG TAB PO ONE (12:36)
[2024-12-16] MEDS: HEPARIN SODIUM 1,000 UN/ML (10ML VL) IVP ONE ×2 (12:46→13:27)
[2024-12-16] MEDS: HEPARIN SODIUM,PORCINE (1 ML) 2,500 UNIT in SODIUM CHLORIDE 0.9% 250 ML IRRIGATION ONE (12:48)
[2024-12-16] MEDS: HEPARIN SODIUM,PORCINE 10,000 UNIT in SODIUM CHLORIDE 0.9% 1,000 ML IRRIGATION ONE (12:48)
[2024-12-16] MEDS: PHENYLEPHRINE-0.9% NACL SYG 1,000 MCG/10 ML SYRINGE IVP ONE ×2 (13:58→14:05)
[2024-12-16] MEDS: ATROPINE SULFATE 0.1 MG/ML 10ML SYRINGE IVP ONE (14:00)
[2024-12-16] MEDS ORDERED: ATROPINE SULFATE 0.1 MG/ML 10ML SYRINGE IV PRN (14:15)
[2024-12-16] MEDS ORDERED: MAG HYDROX/AL HYDROX/SIMETH 30 ML CUP PO PRN (14:15)
[2024-12-16] MEDS ORDERED: NON FORMULARY DRUG (Aspirin [Adult Low Dose Aspirin Ec] 81 MG Tablet) PO PRN (14:17)
[2024-12-16] MEDS: NOREPINEPHRINE 4 MG in SODIUM CHLORIDE 0.9% 250 ML IV ONE (14:31)
[2024-12-16] MEDS: NOREPINEPHRINE 4 MG in SODIUM CHLORIDE 0.9% 250 ML IV SCH (14:45)
[2024-12-16 14:46] LABS: Glucose,Whole Blood 79 mg/dL (70-110)
[2024-12-16] MEDS ORDERED: Potassium Replacement Protocol 1 EACH MISC MISCELLANE PRN (14:55)
[2024-12-16] MEDS ORDERED: NALOXONE 0.4 MG/ML 1 ML VIAL IV PRN (14:55)
[2024-12-16] MEDS ORDERED: Magnesium Replacement Protocol 1 EACH MISC MISCELLANE PRN (14:55)
--- NOTE | 2024-12-16 15:04 | IR ---
EXAMINATION TYPE: IR stent intravas non coronary DATE OF EXAM: 12/16/2024 2:51 PM COMPARISON: Pre Operative Images if available both CT/MRI or plain film CLINICAL INDICATION: Female, 79 years old with history of left carotid stenosis, 39.6min fluoro, 15.7 Gycm2; TECHNIQUE: IR stent intravas non coronary, multiple fluoroscopic images provided for procedure. DAP: 15.7 mGym2 Gycm2 uGym2 cGycm2 or equivalent. FINDINGS: IMPRESSION: 1. Report was generated for administrative purposes only. 2. Please see the operative/procedural note for further details. [facility], , 12/16/2024 3:02 PM
[2024-12-16] MEDS: SODIUM CHLORIDE 0.9% 1,000 ML IV SCH (15:31)
--- NOTE | 2024-12-16 19:33 | P.PCN ---
Date of Procedure: 12/16/24 Operative Findings: Carotid stenting procedure Performing physician Koko Mccarty MD Procedure performed 1. Successful stenting of the left internal carotid artery using 8-6 mm x 30 mm Acculink stent with an excellent angiographic results and reduction of stenosis from 99% to 0% with adjunctive use of filter wire 2. An aortic arch angiogram and selective left common and left internal carotid artery angiogram along with intracranial angiogram 3. 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 The patient follows with Dr. Chang as well as Dr. Burgos Approach Right common femoral artery Complication None Level of sedation The procedure length was about 60 minutes Procedure description After attending informed consent the patient was brought to the cardiac Hoisting Engineer with right common femoral artery was cannulated using micropuncture technique under ultrasound guidance a micropuncture wire passed easily then I placed a 6 Welsh 90 cm shuttle sheath at the right common femoral artery. The sheath was advanced all the way to the proximal descending aorta. An aortic arch angiogram was performed using a 6 Welsh pigtail catheter which was placed at the aortic root. The aortic arch angiogram revealed type II aortic arch with no evidence of any dissection. At that point I did start anticoagulation using heparin with continuous ACT monitoring and at the beginning of the procedure the patient was loaded with Brilinta at 180 mg. Subsequently I did engage the RCA using JB2 catheter. A stiff super core wire was advanced to the mid left common carotid artery. Subsequently the sheath was advanced over the wire and the catheter to the proximal to mid left common carotid artery. Selective left common and left internal carotid artery angiogram was performed and showed critical disease involving the takeoff/ostial of the left internal carotid artery. Giving the nature of the lesion I decided to start by wiring using a 014 wire. Attempting advancing a whisper wire which was all 4 wire was unsuccessful but I was successful advancing an 014 run-through wire all the way to the distal left internal carotid artery. After that with difficulties I was able to advance the 014/018 filter wire to the distal left internal carotid artery. Subsequently attempting advancing the filter over the wire was unsuccessful in spite of multiple attempts to turn the head to the right and the left and up. After that I did balloon angioplasty using 2 mm noncompliant coronary balloon. After that I was able to advance the filter wire to the left internal carotid artery. After that I did predilated using 4 mm balloon but attempting advancing the stent was unsuccessful but successful after performing balloon angioplasty using 5 mm balloon. Then 8-6 x 30 mm carotid stent was advanced over the wire and it was deployed. Postdilatation was performed using 5 mm balloon. The filter was retrieved. The procedure was completed with no complication Postprocedure management Dual antiplatelet therapy Aggressive cholesterol control Risk factors modification Monitor in the intensive care unit Follow-up with the patient
[2024-12-16] MEDS: amLODIPine 2.5 MG TAB PO SCH (20:55)
[2024-12-16] MEDS: ATORVASTATIN 40 MG TAB PO SCH (20:58)
[2024-12-16] MEDS: TICAGRELOR 90 MG TAB PO SCH (20:58)
[2024-12-16] MEDS: DOPamine DRIP 800 MG in DEXTROSE/WATER 1 250ML.BAG IV SCH (21:16)
[2024-12-17 03:51] LABS: African American GFR (CKD) >90 (>60 ml/min/1.73 sqM); Anion Gap 16 mmol/L; Blood Urea Nitrogen 11 mg/dL (7-17); Calcium 8.2 mg/dL (8.4-10.2); Carbon Dioxide 12 mmol/L (22-30); Chloride 111 mmol/L (98-107); Glucose 109 mg/dL (74-99); Non-African American GFR(CKD) 88 (>60 ml/min/1.73 sqM); Potassium 3.7 mmol/L (3.5-5.1); Sodium 139 mmol/L (137-145)
[2024-12-17 03:54] LABS: Basophils % (A) 0 %; Eosinophils % (A) 0 %; HCT 28.6 % (34.0-46.0); Hypochromasia Slight; Lymphocytes % (A) 11 %; MCHC 31.8 g/dL (31.0-37.0); MCV 94.3 fL (80.0-100.0); Mean Platelet Volume 9.3; Monocytes # (A) 0.5 k/uL (0-1.0); Monocytes % (A) 6 %; Neutrophils # (A) 7.3 k/uL (1.3-7.7); Neutrophils % (A) 81 %; Platelet Count 293 k/uL (150-450); RBC 3.03 m/uL (3.80-5.40); RDW 14.5 % (11.5-15.5); WBC 9.1 k/uL (3.8-10.6)
[2024-12-17 04:27] LABS: HGB 9.1 gm/dL (11.4-16.0)
[2024-12-17] MEDS: POTASSIUM CHLORIDE ER 20 MEQ TAB.ER PO SCH (05:55)
--- NOTE | 2024-12-17 07:33 | P.PN ---
Subjective Progress Note Date: 12/17/24 Patient was seen and evaluated this morning which she underwent yesterday successful stenting of the left internal carotid artery with a good angiographic results with a very challenging case. She is in process of having angioplasty of bilateral iliac later on today and possible discharge home tomorrow. She is asymptomatic which she still on small dose of norepinephrine I am in process of weaning her from. Beside that she is on dual antiplatelet therapy along with a statin. She is on amlodipine which I am going to stop at this point. The right groin is soft and nontender with no bruises. Assessment Status post stenting of the left internal carotid artery Severe lower extremities PAD appears to be symptomatic as well Multiple comorbid conditions Plan Continue current medical regimen Proceed with SENIOR BUSINESS DEVELOPMENT ANALYST of bilateral iliac from left groin approach Follow-up with the patient Objective - Vital Signs Vital signs: Vital Signs Temp 97.6 F 12/17/24 04:00 Pulse 54 L 12/17/24 07:00 Resp 37 H 12/17/24 07:00 BP 144/52 12/17/24 07:00 Pulse Ox 94 L 12/17/24 07:00 FiO2 Intake & Output 12/16/24 12/17/24 12/17/24 18:59 06:59 18:59 Intake Total 7050.243 3400.453 Output Total 0 1325 0 Balance 1230.348 390.453 0 Weight 69.2 kg 76.1 kg Intake: IV 1035 1100 Sodium Chloride 0.9% 1, 400 1100 000 ml @ 100 mls/hr IV . Q10H [facility] Rx#:[id number] Intake, IV Titration 45.348 615.453 Amount DOPamine DRIP 800 mg In 13.084 Dextrose/Water 1 250ml. bag @ 5 MCG/KG/MIN 6.488 mls/hr IV .Q24H [facility] Rx#: [id number] Norepinephrine 4 mg In 45.348 602.369 Sodium Chloride 0.9% 250 ml @ 0.03 MCG/KG/MIN 7.91 mls/hr IV .Q24H [facility] Rx#: [id number] Oral 150 Output: Urine 0 1175 0 Emesis 150 Other: Voiding Method External Catheter External Catheter ABP, PAP, CO, CI - Last Documented Arterial Blood Pressure 109/42 - Labs CBC & Chem 7: 12/17/24 03:02 12/17/24 03:02 Labs: Abnormal Lab Results - Last 24 Hours (Table) 12/17/24 12/17/24 Range/Units 03:02 03:02 RBC 3.03 L (3.80-5.40) m/uL Hgb 9.1 L D (11.4-16.0) gm/dL Hct 28.6 L (34.0-46.0) % Chloride 111 H (98-107) mmol/L Carbon Dioxide 12 L (22-30) mmol/L Glucose 109 H (74-99) mg/dL Calcium 8.2 L (8.4-10.2) mg/dL
[2024-12-17] MEDS: SYMBICORT 160-4.5 MCG INHALER INHALATION SCH (08:10)
[2024-12-17] MEDS: ASPIRIN 81 MG PO SCH (09:45)
[2024-12-17] MEDS: CALCIUM CARBONATE 500 MG CHEWABLE PO SCH (09:45)
[2024-12-17] MEDS: CHOLECALCIFEROL 25 MCG (1000 IU) TABLET PO SCH (09:45)
[2024-12-17] MEDS: MAGNESIUM OXIDE 400 MG TAB PO SCH (09:45)
[2024-12-17] MEDS: buPROPion XL 150 MG TAB.ER.24H PO SCH (09:47)
[2024-12-17] MEDS: LIDOCAINE 1% INJ 10MG/ML (20 ML MDV) SQ ONE (12:54)
[2024-12-17] MEDS: fentaNYL (PF) 50 MCG/ML 2 ML AMP IVP ONE (12:57)
[2024-12-17] MEDS: SODIUM CHLORIDE 0.9% 500 ML 500 ML IV ONE (12:58)
[2024-12-17] MEDS: HEPARIN SODIUM 1,000 UN/ML (10ML VL) IV ONE (13:04)
[2024-12-17] MEDS ORDERED: NALOXONE 0.4 MG/ML 1 ML VIAL IVP PRN (13:39)
--- NOTE | 2024-12-17 13:43 | P.PCN ---
Date of Procedure: 12/17/24 Operative Findings: PERCUTANEOUS PERIPHERAL INTERVENTION Performing physician Koko Mccarty M.D. Procedure performed 1. Successful balloon angioplasty and stenting of bilateral common iliac arteries with an excellent angiographic result 2. Adjunctive use of IVUS and lithotripsy balloon 3. Angiogram of bilateral common iliac arteries and ultrasound-guided access of bilateral common femoral arteries Indication Symptomatic 79-year-old female patient with critical bilateral iliac disease Approach Right and left common femoral arteries Complications None Level of sedation Moderate with a sedation time of 48 minutes Procedure description After obtaining informed consent the patient was brought to the cardiac Plastic Surgery Manager with right and left common femoral arteries were cannulated using micropuncture technique under ultrasound guidance a micropuncture wire passed easily then I placed a 7 Ugandan 23 cm Brite tip sheath in both right and left common femoral arteries and subsequently both sheath were secured and flushed and dilator was taken out. I wired both femoral artery using a 1 4 wire. IVUS was performed and showed heavily calcified bilateral common iliac arteries. Subsequently I did the predilatation using 7 mm shockwave balloon before I deployed a 7 mm x 59 mm iCAST covered stent where the stent were positioned under fluoroscopy guidance and deployed under fluoroscopy guidance in a kissing technique. Final angiogram showed excellent angiographic results and the procedure was completed with no complication but subsequently I did exchange my 23 cm sheath into 11 cm sheath using 035 wire. The procedure was completed with no complication Postprocedure management 1. Dual antiplatelet therapy 2. Aggressive cholesterol control 3. Risk factors modification 4. Follow-up with the patient
[2024-12-17] MEDS: IOPAMIDOL-370 100ML BTL INJ ONE (13:51)
--- NOTE | 2024-12-17 14:03 | IR ---
EXAMINATION TYPE: IR area captain iliac DATE OF EXAM: 12/17/2024 1:56 PM COMPARISON: Pre Operative Images if available both CT/MRI or plain film CLINICAL INDICATION: Female, 79 years old with history of PVD. 8.4MIN FLUORO TIME; TECHNIQUE: IR area captain iliac, multiple fluoroscopic images provided for procedure. DAP: 15.7 mGym2 Gycm2 uGym2 cGycm2 or equivalent. FINDINGS: IMPRESSION: 1. Report was generated for administrative purposes only. 2. Please see the operative/procedural note for further details. [facility], , 12/17/2024 2:01 PM
[2024-12-17] MEDS: SODIUM CHLORIDE 0.9% 1,000 ML in EMPTY BAG 1 BAG IV SCH (14:30)
[2024-12-17] MEDS: ONDANSETRON 4 MG/2 ML VIAL IVP PRN (17:22)
[2024-12-18] MEDS: TERBUTALINE FOR EXTRAVASATION 1 MG/ML VIAL SQ STA (02:58)
[2024-12-18 05:12] LABS: Hypochromasia Marked; MCH 30.7 pg (25.0-35.0); MCHC 31.8 g/dL (31.0-37.0); MCV 96.5 fL (80.0-100.0); Mean Platelet Volume 9.6; Platelet Count 209 k/uL (150-450); RBC 2.59 m/uL (3.80-5.40); RDW 14.8 % (11.5-15.5); WBC 9.1 k/uL (3.8-10.6)
[2024-12-18 05:19] LABS: African American GFR (CKD) >90 (>60 ml/min/1.73 sqM); Anion Gap 13 mmol/L; Blood Urea Nitrogen 12 mg/dL (7-17); Calcium 8.6 mg/dL (8.4-10.2); Carbon Dioxide 15 mmol/L (22-30); Chloride 110 mmol/L (98-107); Glucose 115 mg/dL (74-99); Non-African American GFR(CKD) 89 (>60 ml/min/1.73 sqM); Potassium 3.3 mmol/L (3.5-5.1); Sodium 138 mmol/L (137-145)
[2024-12-18] MEDS: POTASSIUM CHLORIDE 10 MEQ in WATER FOR INJECTION 1 100ML.BAG IVPB SCH (05:33)
[2024-12-18 09:42] VITALS: TEMP 97.4
--- NOTE | 2024-12-18 09:57 | P.DS ---
Providers Date of admission: 12/16/24 10:15 Attending physician: Koko Mccarty Primary care physician: [facility] Course: The patient is a pleasant 79-year-old female patient was admitted to the hospital and underwent stenting of the left internal carotid artery and subsequently also stenting of bilateral iliac arteries. She was seen and evaluated this morning. She is stable from a cardiovascular standpoint of view and she is asymptomatic. She is going to be discharged home on dual antiplatelet therapy along with a statin to be seen by Dr. Burgos in a week from now. Please note that the right groin is soft and nontender with no bruises Plan - Discharge Summary Discharge Rx Participant: No New Discharge Prescriptions: New Ticagrelor [Brilinta] 90 mg PO BID #180 tab Continue Cholecalciferol [Vitamin D3 (25 Mcg = 1000 Iu)] 2,000 unit PO QAM Calcium Carbonate [Calcium] 600 mg PO QAM Atorvastatin [Lipitor] 40 mg PO HS buPROPion XL [Wellbutrin XL] 150 mg PO QAM ALPRAZolam [Xanax] 0.25 mg PO BID PRN PRN Reason: Anxiety amLODIPine [Norvasc] 2.5 mg PO BID Fluticasone/Umeclidin/Vilanter [Trelegy Ellipta 200-62.5-25] 1 inhaler PO QAM Magnesium (Unk) 1 tab PO DAILY Aspirin [Adult Low Dose Aspirin EC] 81 mg PO ONCE PRN PRN Reason: Pre-Op Discontinued Clopidogrel [Plavix] 75 mg PO DAILY Discharge Medication List ALPRAZolam [Xanax] 0.25 mg PO BID PRN 08/07/20 [History] Atorvastatin [Lipitor] 40 mg PO HS 08/07/20 [History] Calcium Carbonate [Calcium] 600 mg PO QAM 08/07/20 [History] Cholecalciferol [Vitamin D3 (25 Mcg = 1000 Iu)] 2,000 unit PO QAM 08/07/20 [History] buPROPion XL [Wellbutrin XL] 150 mg PO QAM 08/07/20 [History] Fluticasone/Umeclidin/Vilanter [Trelegy Ellipta 200-62.5-25] 1 inhaler PO QAM 08/11/23 [History] amLODIPine [Norvasc] 2.5 mg PO BID 08/11/23 [History] Magnesium (Unk) 1 tab PO DAILY 11/01/24 [History] Aspirin [Adult Low Dose Aspirin EC] 81 mg PO ONCE PRN 12/16/24 [History] Ticagrelor [Brilinta] 90 mg PO BID #180 tab 12/18/24 [Rx] Follow up Appointment(s)/Referral(s): Cedrick Cleaning MD [STAFF PHYSICIAN] - 1 Week Patient Instructions/Handouts: Moderate Sedation (DC), Carotid Artery Stent Placement (DC)
[2024-12-18] MEDS: POTASSIUM CHLORIDE ER 20 MEQ TAB.ER PO SCH (10:15)
[2024-12-18 10:16] VITALS: BP 114/51
[2024-12-18 11:04] VITALS: PULSE 61; RESP 20
== END 2024-12-18 12:05 | disposition home or self-care (01) | DRG 36 ==
LOC: UNDOADMIN 05:56 → 2ORMAIN 05:56 → 2SICU 12-16 14:20
PROVIDERS: ADMIT Internal Medicine Interventional Cardiology; ATTEND Internal Medicine Interventional Cardiology
PROC: B31R1ZZ Fluoroscopy of Intracranial Arteries using Low Osmolar Contrast (ICD-10-PCS; principal; 2024-12-16 12:00)
PROC: 037L3DZ Dilation of Left Internal Carotid Artery with Intraluminal Device, Percutaneous Approach (ICD-10-PCS; principal; 2024-12-16 12:00)
PROC: B3141ZZ Fluoroscopy of Left Common Carotid Artery using Low Osmolar Contrast (ICD-10-PCS; principal; 2024-12-16 12:00)
PROC: B3171ZZ Fluoroscopy of Left Internal Carotid Artery using Low Osmolar Contrast (ICD-10-PCS; principal; 2024-12-16 12:00)
PROC: B3101ZZ Fluoroscopy of Thoracic Aorta using Low Osmolar Contrast (ICD-10-PCS; principal; 2024-12-16 12:00)
PROC: 04FD3ZZ Fragmentation of Left Common Iliac Artery, Percutaneous Approach (ICD-10-PCS; 2024-12-17 12:30)
PROC: 04FC3ZZ Fragmentation of Right Common Iliac Artery, Percutaneous Approach (ICD-10-PCS; 2024-12-17 12:30)
PROC: 047C3DZ Dilation of Right Common Iliac Artery with Intraluminal Device, Percutaneous Approach (ICD-10-PCS; 2024-12-17 12:30)
PROC: B44HZZ3 Ultrasonography of Bilateral Lower Extremity Arteries, Intravascular (ICD-10-PCS; 2024-12-17 12:30)
PROC: 047D3DZ Dilation of Left Common Iliac Artery with Intraluminal Device, Percutaneous Approach (ICD-10-PCS; 2024-12-17 12:30)
DX: I65.23 Occlusion and stenosis of bilateral carotid arteries (principal); E78.5 Hyperlipidemia, unspecified; I10 Essential (primary) hypertension; I70.202 Unspecified atherosclerosis of native arteries of extremities, left leg; I70.211 Atherosclerosis of native arteries of extremities with intermittent claudication, right leg; F17.210 Nicotine dependence, cigarettes, uncomplicated; I25.10 Atherosclerotic heart disease of native coronary artery without angina pectoris; Z79.02 Long term (current) use of antithrombotics/antiplatelets; Z79.899 Other long term (current) drug therapy
CPT/HCPCS: 37215; 37221; 37252; 76937; 80048; 85025; 85027; 94640